=== PATIENT | male | born 1965 | race Caucasian/White ===

== ENCOUNTER 2021-04-10 10:42 | Observation (INO) | payer OTHER ==
[~2021-04-10] VITALS: Ht 160 cm; Wt 65.8 kg
[2021-04-10 11:02] VITALS: BP 166/106
--- NOTE | 2021-04-10 11:02 | NUR ---
FSBS 267
[2021-04-10 11:33] LABS: BASOPHILS 0.4 % (0-2); EOSINOPHILS 0.3 % (0-7); HEMATOCRIT 50.8 % (42.0-54.0); HEMOGLOBIN 17.3 g/dL (13.5-17.5); IMMATURE GRANULOCYTES 0.3 % (0-5); LYMPHOCYTE ABS# 1.69 10x3/uL (1.32-3.57); LYMPHOCYTES 16.9 % (15-50); MCH 29.7 pg (26.0-34.0); MCHC 34.1 g/dL (31.0-37.0); MCV 87.1 fL (80.0-100.0); MEAN PLATELET VOLUME 10.2 fL (7.4-10.4); MONOCYTES 8.9 % (2-11); NEUTROPHIL ABS# 7.31 10x3/uL (1.78-5.38); NEUTROPHILS 73.2 % (40-80); PLATELET COUNT 216 10x3/uL (130-400); RBC 5.83 10x6/uL (4.20-6.10); RDW 12.8 % (11.5-14.5)
[2021-04-10 11:37] LABS: ALKALINE PHOSPHATASE 102 U/L (30-120); ALT (SGPT) 35 U/L (10-68); AMYLASE - SERUM 68 U/L (25-115); BILIRUBIN - TOTAL 1.68 mg/dL (0.2-1.3); CALC OSMOLALITY 278 mosm/kg (275-300); CALCIUM 9.6 mg/dL (8.5-10.1); CHLORIDE - SERUM 94 mmol/L (98-107); CREATININE - SERUM 1.2 mg/dL (0.6-1.3); GLUCOSE 284 mg/dL (74-106); LIPASE 117 U/L (73-393); POTASSIUM - SERUM 3.5 mmol/L (3.5-5.1); SODIUM 132 mmol/L (136-145); UREA NITROGEN 25 mg/dL (7-18); eGFR NON AFRICAN AMERICAN 67 mL/min (90-120)
[2021-04-10 11:38] LABS: TROPONIN-I < 0.017 ng/mL (0.000-0.060)
[2021-04-10 11:47] LABS: ALBUMIN 4.1 g/dL (3.4-5.0); CARBON DIOXIDE 25.6 mmol/L (21.0-32.0)
--- NOTE | 2021-04-10 12:36 | NUR ---
URINE OBTAINED AND SENT TO THE LAB
--- NOTE | 2021-04-10 12:53 | NUR ---
PT TO CT
[2021-04-10 12:58] LABS: BACTERIA FEW HPF (<MOD); BILIRUBIN NEGATIVE (NEGATIVE); KETONE 1+ mg/dL (< 1+); NITRITE NEGATIVE (NEGATIVE); UROBILINOGEN NORMAL mg/dL (< 2); WHITE CELLS - URINE 1 HPF (0-1)
[2021-04-10 15:47] VITALS: BP 134/82
[2021-04-10] MEDS ORDERED: PHENERGAN25 M1 PO (16:16)
[2021-04-10] MEDS ORDERED: PROTONIX40 MG PO (16:17)
[2021-04-10] MEDS ORDERED: JARDIANCE10 MG PO (16:17)
[2021-04-10] MEDS ORDERED: NORVASC2.5 MG PO (16:17)
[2021-04-10] MEDS ORDERED: CARAFATE1 G PO (16:18)
[2021-04-10] MEDS ORDERED: LISINOPRIL40 MG PO (16:18)
[2021-04-10] MEDS ORDERED: ZOCOR10 MG PO (16:19)
[2021-04-10] MEDS ORDERED: GLIPIZIDE5 MG PO (16:19)
[2021-04-10 16:23] VITALS: BP 129/65; BMI 25.7
--- NOTE | 2021-04-10 19:51 | NUR ---
PATIENT RESTING IN BED WITH NO S/S OF DISTRESS AND DENIES OTHER NEEDS AT THIS TIME. BED IN LOWEST POSITION AND CALL LIGHT IN REACH. ENCOURAGED PATIENT TO CALL WITH NEEDS.
--- NOTE | 2021-04-10 20:15 | NUR ---
ADMINISTERED MEDS PER ORDERS. PATIENT MARLENA WELL. ENCOURAGED TO CALL WITH NEEDS.
[2021-04-10 21:29] VITALS: BP 140/71
[2021-04-11 00:57] VITALS: BP 121/72
[2021-04-11 05:09] VITALS: BP 138/70
[2021-04-11 07:08] LABS: BASOPHILS 1.1 % (0-2); EOSINOPHILS 0.9 % (0-7); HEMATOCRIT 42.5 % (42.0-54.0); HEMOGLOBIN 14.1 g/dL (13.5-17.5); LYMPHOCYTES 32.3 % (15-50); MCH 29.2 pg (26.0-34.0); MCHC 33.2 g/dL (31.0-37.0); MONOCYTES 9.3 % (2-11); NEUTROPHILS 56.4 % (40-80); PLATELET COUNT 185 10x3/uL (130-400); RBC 4.83 10x6/uL (4.20-6.10); RDW 13.4 % (11.5-14.5); WBC 8.1 10x3/uL (4.8-10.8)
--- NOTE | 2021-04-11 07:20 | NUR ---
PT RESTING IN BED WITH EYES CLOSED. [facility] STAFF ENTERS ROOM. RESP EVEN AND UNLABORED. PT DENIES N/V AT THIS TIME, BUT DOES VOICE HAVING FEELINGS OF A "LUMP IN MY STOMACH. AND IF YOU STOP THAT MEDICINE I WILL PROBABLY BE SICK". IV TO LEFT AC WITH NS @ 125ML/HR, ZOFRAN 4.7ML/HR BOTH INFUSING VIA PUMP. SITE WITHOUT REDNESS OR EDEMA. LEFT HAND WITH PROTONIX @ 10ML/HR INFUSING VIA PUMP. SITE WITHOUT REDNESS OR EDEMA. DENIES FURTHER NEEDS AT THIS TIME. CL WITHIN REACH. ENCOURAGED TO CALL WITH NEEDS. CONTINUE POC
[2021-04-11 07:21] LABS: ANION GAP 10.4 mmol/L (8-16); BILIRUBIN - TOTAL 1.24 mg/dL (0.2-1.3); CALCIUM 8.1 mg/dL (8.5-10.1); CARBON DIOXIDE 27.9 mmol/L (21.0-32.0); CREATININE - SERUM 1.1 mg/dL (0.6-1.3); POTASSIUM - SERUM 3.3 mmol/L (3.5-5.1)
[2021-04-11 07:22] LABS: ALBUMIN 2.9 g/dL (3.4-5.0)
[2021-04-11 08:23] VITALS: BP 127/80
[2021-04-11 10:34] LABS: UDS - AMPHET NEGATIVE QUAL (NEGATIVE); UDS - BARB NEGATIVE QUAL (NEGATIVE); UDS - BENZO NEGATIVE QUAL (NEGATIVE); UDS - COCAINE NEGATIVE QUAL (NEGATIVE); UDS - OPIATE POSITIVE QUAL (NEGATIVE); UDS - PCP NEGATIVE QUAL (NEGATIVE); UDS - THC POSITIVE QUAL (NEGATIVE)
[2021-04-11 12:51] VITALS: Ht 160 cm; Wt 65.8 kg
[2021-04-11 13:14] VITALS: BP 126/77
== END 2021-04-11 16:54 | disposition home or self-care (01) ==
LOC: OBSVTIME → D.ER 10:42 → D.EDHOLD 13:15 → D.MS 13:15 → OBSVTIME 13:15 → D.MS 04-11 16:54
PROVIDERS: Family Medicine; ADMIT Emergency Medicine; ATTEND Emergency Medicine
DX: E11.43 Type 2 diabetes mellitus with diabetic autonomic (poly)neuropathy (principal); E11.65 Type 2 diabetes mellitus with hyperglycemia; R11.2 Nausea with vomiting, unspecified; R10.9 Unspecified abdominal pain; R09.02 Hypoxemia; K31.84 Gastroparesis; E87.1 Hypo-osmolality and hyponatremia; E87.6 Hypokalemia